=== PATIENT | male | born 1965 | race African-American/Black ===

== ENCOUNTER 2016-12-18 12:25 | Emergency (ER) | payer BC ==
[~2016-12-18] VITALS: Ht 188 cm; Wt 95.3 kg
[~2016-12-18 12:25] MED LIST: BENTYL 20 MG TA20 M1 PO; GLIPIZIDE 10 MG10 MG; LISINOPRIL10 MG; METFORMIN HCL500 MG; ONDANSETRON HCL4 M2 PO; PROAIR HFA8.5 GM INH; PROMETHAZINE-C120 ML PO; ZOCOR20 MG
[2016-12-18 12:27] VITALS: BP 159/101
[2016-12-18] MEDS ORDERED: NAPROSYN500 MG PO (13:40)
== END 2016-12-18 14:12 | disposition home or self-care (01) ==
LOC: ER 12:25
DX: M70.31 Other bursitis of elbow, right elbow (principal); E11.9 Type 2 diabetes mellitus without complications; F10.99 Alcohol use, unspecified with unspecified alcohol-induced disorder; Y93.89 Activity, other specified